=== PATIENT | female | born 1945 | race Caucasian/White ===

== ENCOUNTER 2017-05-06 21:35 | Emergency (ER) | payer OTHER ==
[~2017-05-06] VITALS: Ht 162.6 cm; Wt 86.5 kg
[~2017-05-06 21:35] MED LIST: ASPI-664 PO; ATOR20TA38 PO; BENA20TA65 PO; CARV12.598 PO; CLOP75TA27 PO; FURO-110 PO; LANT3I SC
[2017-05-06 21:37] VITALS: Ht 162.6 cm; Wt 86.5 kg
--- NOTE | 2017-05-06 22:27 | ERD ---
ER Documentation Chief Complaint Date/Time DATE: 05/06/17 TIME: 22:25 Chief Complaint total body rash and itch HPI This 72-year-old female presents to the emergency room for evaluation of a rash. The patient stated that she has had a rash for 3 days and describes as a itchy rash worse with heat. She presents to the emergency room today for evaluation of this rash which is itchy. The patient denies any fevers, she denies any new allergens and denies any new soaps or detergents at home. She states that the rashes on her left arm right arm left leg and right leg. ROS All systems reviewed and are negative except as per history of present illness. Medications Home Meds Active Scripts Insulin Glargine* (Lantus*) 100 Unit/Ml Soln, 20 UNIT SC HS Y for high blood sugar for 30 Days, 0 Refills Prov:CHEYANNE MONROY MD 12/11/15 Furosemide* (Lasix*) 20 Mg Tab, 40 MG PO DAILY@06 for water pill, #30 TAB Prov:CHEYANNE MONROY MD 12/11/15 Clopidogrel Bisulfate (Clopidogrel) 75 Mg Tab, 75 MG PO DAILY for Blood thinner , #30 TAB 0 Refills Prov:CHEYANNE MORNOY MD 12/11/15 Carvedilol* (Coreg*) 12.5 Mg Tab, 12.5 MG PO BID for high blood pressure, #60 TAB 0 Refills Prov:CHEYANNE MONROY MD 12/11/15 Benazepril Hcl* (Lotensin*) 20 Mg Tab, 40 MG PO BID for high blood pressure, # 60 TAB Prov:CHEYANNE MONROY MD 12/11/15 Atorvastatin Calcium* (Atorvastatin Calcium*) 20 Mg Tab, 40 MG PO HS for for high cholesterol, #30 TAB 0 Refills Prov:CHEYANNE MONROY MD 12/11/15 Aspirin* (Aspirin* EC) 81 Mg Tabec, 81 MG PO DAILY, #30 BOTTLE 0 Refills Prov:CHEYANNE MONROY MD 12/11/15 Allergies Allergies: Coded Allergies: No Known Allergy (Unverified , 12/09/15) PMhx/Soc History of Surgery: No Anesthesia Reaction: No Hx Neurological Disorder: Yes (TIA IN THE PAST) Hx Respiratory Disorders: No Hx Cardiac Disorders: Yes (HTN, PALPITATION, ANGINA) Hx Psychiatric Problems: No Hx Miscellaneous Medical Probl: Yes (HTN, TIA, (L) ear tinnitus, palpaitation, angina, arthritis) Hx Alcohol Use: No Hx Substance Use: No Hx Tobacco Use: No Physical Exam Vitals Vital Signs Date Time Temp Pulse Resp B/P Pulse Ox O2 Delivery O2 Flow Rate FiO2 05/06/17 22:07 221/97 05/06/17 21:37 98.1 91 18 237/97 99 Physical Exam Const: No acute distress Head: Atraumatic Eyes: Normal Conjunctiva ENT: Normal External Ears, Nose and Mouth. Neck: Full range of motion..~ No meningismus. Resp: Clear to auscultation bilaterally Cardio: Regular rate and rhythm, no murmurs Abd: Soft, non tender, non distended. Normal bowel sounds Skin: Maculopapular rash noted over part of the left upper extremity, right upper extremity, and bilateral lower extremities, no skin sloughing Back: No midline or flank tenderness Ext: No cyanosis, or edema Neur: Awake and alert Psych: Normal Mood and Affect Procedures/MDM This 72-year-old female presents to the emergency room for evaluation of a rash. This patient states her rash is been present for 3 days and has been itching. The patient has no skin sloughing. Negative Nikolsky sign. The patient is afebrile and in no acute distress. At this time the rash does not appear to be infectious in nature. The patient states that this was with rash and could possibly related to histamine release as this patient is itching as well. The patient will be given hydrocortisone cream, and Benadryl. She was given Benadryl in the emergency room and will be discharged with instructions to return to the emergency room for symptoms worsen. Of note this patient was hypertensive however she did not take her blood pressure medication. She denies headache or blurred vision or headache or chest pain at this time and is a symptomatic. Departure Diagnosis: Primary Impression: Rash and other nonspecific skin eruption Additional Impression: Hypertension Condition: SUAD Mott DO May 06, 2017 22:27
[2017-05-06] MEDS ORDERED: KEN1O TOP (22:28)
[2017-05-06] MEDS ORDERED: DIPH25CA6 PO (22:28)
[2017-05-06] MEDS ORDERED: DIPHENHYDRAMINE 50 MG CAP PO ONE (22:30)
[2017-05-06 22:46] VITALS: BP 168/78; PULSE 71; RESP 20; TEMP 97.9
== END 2017-05-06 22:48 | disposition home or self-care (01) ==
LOC: E/R 21:35
DX: R21 Rash and other nonspecific skin eruption (principal); I10 Essential (primary) hypertension; E11.9 Type 2 diabetes mellitus without complications; Z79.82 Long term (current) use of aspirin; Z79.4 Long term (current) use of insulin
CPT/HCPCS: 99283

== ENCOUNTER 2017-10-28 00:59 | Inpatient (IN) | END 2017-11-06 18:36 | disposition home health service (06) | DRG 246 ==

== ENCOUNTER 2018-06-29 17:57 | Inpatient (IN) | END 2018-07-02 20:24 | disposition home or self-care (01) | DRG 291 ==

== ENCOUNTER 2018-08-05 00:17 | Inpatient (IN) | END 2018-08-11 18:40 | disposition home or self-care (01) | DRG 291 ==